=== PATIENT | female | born 1970 | race Caucasian/White ===

== ENCOUNTER 2020-06-29 08:51 | Outpatient (REF) | payer OTHER, SELFPAY | END 2020-06-29 08:52 | disposition home or self-care (01) | LOC: HO.LAB 08:51 | PROVIDERS: Visit Provider Internal Medicine | DX: Z20.828 Contact with and (suspected) exposure to other viral communicable diseases (principal) | CPT/HCPCS: C9803; U0003 ==

== ENCOUNTER 2020-07-20 05:17 | Emergency (ER) | payer OTHER, SELFPAY ==
[2020-07-20 05:24] VITALS: BP 170/93; PULSE 67; RESP 18; TEMP 36.6; O2SAT 98; BMI 27.3
--- NOTE | 2020-07-20 05:27 | ECG_ITS ---
Test Reason : ABD PAIN Blood Pressure : / mmHG Vent. Rate : 063 BPM Atrial Rate : 063 BPM P-R Int : 138 ms QRS Dur : 070 ms QT Int : 398 ms P-R-T Axes : -02 -05 023 degrees QTc Int : 407 ms Normal sinus rhythm Normal ECG No previous ECGs available Referred By: Jayme Snyder Electronically Signed By:CARLITO TRUJILLO MD
--- NOTE | 2020-07-20 05:29 | US_ITS ---
EXAMINATION: US ABDOMEN LIMITED CLINICAL INFORMATION: Right upper quadrant pain. COMPARISON: 02/26/2020 TECHNIQUE: Real-time imaging of the right upper quadrant abdominal viscera. FINDINGS: PANCREAS: Not well seen secondary to bowel gas LIVER: Normal. The liver is normal in size. The liver contour is normal. Parenchymal echogenicity is normal. No focal hepatic lesion. There is no intrahepatic biliary duct dilatation seen. GALLBLADDER: Redemonstration of a prominent polyp at the gallbladder fundus measuring 1.7 x 0.7 x 1.7 cm. The gallbladder is physiologically distended without evidence of stones, sludge, wall thickening or pericholecystic fluid. COMMON BILE DUCT: Normal in caliber measuring 0.3 cm in diameter. RIGHT KIDNEY: Normal. No hydronephrosis. No renal calculi or focal parenchymal lesions. The kidney measures 11.1 cm in maximum dimension. FREE FLUID: None. US/US abdomen limited IMPRESSION: No acute findings. Redemonstration of the probable gallbladder polyp at the fundus. There may be slight increase in size. Given the overall size, further evaluation is recommended, as previously suggested.
--- NOTE | 2020-07-20 05:30 | ED_ITS ---
HPI - Abdominal Pain General Chief Complaint: Abdominal Pain Stated Complaint: abd pain Time Seen by Provider: 07/20/20 05:20 Source: patient Mode of arrival: ambulatory History of Present Illness HPI narrative: 49-year-old female right upper quadrant abdominal pain since last night. Patient states sharp pain nonradiating. Nausea without vomiting mild diarrhea. No fevers no chills. Patient states was not hungry during dinner did not eat a full meal. Did have similar symptoms several months ago but did not follow-up denies dizziness denies weakness or recent illness MD elicited complaint: abdominal pain Quality: sharp Radiation: RUQ Exacerbating factors: movement Related Data Home Medications Medication Instructions Recorded Confirmed irbesartan 0.5 tab PO DAILY 07/20/20 07/20/20 Previous Rx's Medication Instructions Recorded famotidine [Pepcid] 40 mg PO DAILY #14 tab 07/20/20 ondansetron 4 mg PO Q8H PRN 5 Days #15 tab 07/20/20 tramadol 50 mg PO BID PRN #14 tab 07/20/20 Allergies Allergy/AdvReac Type Severity Reaction Status Date / Time latex [LATEX] Allergy Mild Hives Verified 07/20/20 05:55 Review of Systems Review of Systems Constitutional : No Weight loss, No Fever, No Chills, No Night Sweats, No Fatigue, No Malaise ENT/Mouth : No Hearing loss, No Ear Pain, No Nasal Congestion, No Sinus Pain, No Hoarseness, No sore throat, No Rhinorrhea, No Swallowing Difficulty Eyes: No Eye Pain, No Swelling, No Redness, No Foreign Body, No Discharge, No Vision Changes Cardiovascular : No Chest Pain, No SOB, No Dyspnea on Exertion, No Orthopnea, No Edema, No Palpitations Respiratory : No Cough, No Sputum, No Wheezing, No Smoke Exposure, No Dyspnea Gastrointestinal : Positive Nausea, No Vomiting, No Diarrhea, No Constipation, positive abdominal Pain, No Hematochezia, No Melena Genitourinary : no irregular bleeding, No Dysuria, No Urinary Frequency, No Hematuria, No Urinary Incontinence, No Urgency, No Flank Pain, No Urinary Flow Changes, No Hesitancy Musculoskeletal : No joint pain, No Myalgias, No Joint Swelling Skin : No Skin Lesions, No rash Neuro : No Weakness, No Numbness, No Paresthesias, No Loss of Consciousness, No Dizziness, No Headache Psych : No Anxiety/Panic, No Depression, No SI/HI/AH/VH, No Social Issues, Heme/Lymph: No Bruising, No Bleeding,No Lymphadenopathy Endocrine : No Polyuria, No Polydipsia, No Temperature Intolerance Physical Exam Vital Signs: Vital Signs: Last Vital Signs Temp 98 F 07/20/20 05:24 Pulse 67 07/20/20 05:24 Resp 18 07/20/20 05:24 BP 170/93 H 07/20/20 05:24 Pulse Ox 98 07/20/20 05:24 Body Mass Index 27.3 Appearance: Alert. Oriented X3. No acute distress. Eyes: Pupils equal, round and reactive to light. ENT: Pharynx normal. Neck: Normal inspection. Neck supple. No lymph nodes noted. No crepitus CVS: Normal heart rate and rhythm. Pulses normal. Normal S1 and S2 Respiratory: No respiratory distress. Breath sounds normal. No Wheezing. No rales Abdomen: Soft and positive right upper tender. No rigidity. No distention. good BS x4 Skin: Skin warm and dry. Normal skin color. Normal skin turgor. Extremities: No lower extremity edema. Neurovascular intact to all extremities. No Lacerations. No Rash Neuro: Oriented X 3. No motor deficit. No sensory deficit. Moving all extermities. No slurred speech. Course Course Course Narrative: I discussed with the patient regards to polyp seen on ultrasound and follow-up with primary care for definitive diagnosis MDM - Abdominal Pain MDM Narrative Medical decision making narrative: 49-year-old female with mid and right upper quadrant abdominal pain. Laboratory work with LFTs EKG troponin negative ultrasound without stones. Or signs of cholecystitis patient given IV Pepcid and IV morphine feeling much improved tolerating p.o. intake I discussed with the patient reasons to return to emergency department and follow-up with primary care for her blood pressure Differential Diagnosis Differential diagnosis: Likely abdominal pain (Cholecystitis pancreatitis acute coronary syndrome) Lab Data Attestation: I reviewed the patient's lab results. Result diagrams: 07/20/20 05:54 07/20/20 05:54 Labs: Lab Results 07/20/20 07/20/20 07/20/20 Range/Units 05:54 05:54 05:54 WBC 11.0 H (4.8-10.8) X10*3/uL RBC 4.56 (4.20-5.50) X10*6/uL Hgb 14.0 (12.0-16.0) g/dl Hct 41.5 (37-47) % MCV 91.0 (80-98) fL MCH 30.7 (27.0-33.0) pg MCHC 33.7 (31.0-35.0) g/dl RDW 12.3 (11.0-16.0) % Plt Count 213 (160-400) X10*3/uL MPV 10.0 (9.4-12.3) fL Immature Gran % (Auto) 0.4 (0.0-0.4) % Neut % (Auto) 70.2 (45-73) % Lymph % (Auto) 21.9 (20-40) % Leslie % (Auto) 5.8 (2-11) % Eos % (Auto) 1.2 (0-4) % Baso % (Auto) 0.5 (0-2) % Lymph # (Auto) 2.4 (1.2-4.9) X10*3/uL Leslie # (Auto) 0.6 (0.1-1.2) X10*3/uL Eos # (Auto) 0.1 (0.0-0.4) X10*3/uL Baso # (Auto) 0.1 (0.0-0.2) X10*3/uL Abs Immat Gran (auto) 0.04 H (0.00-0.03) X10*3/uL Absolute Neuts (auto) 7.7 (2.0-8.3) X10*3/uL Absolute Nucleated RBC 0.000 (0.0-0.012) X10*3/uL Nucleated RBC % (auto) 0.0 (0.0-0.2) /100WBC Sodium 140 (135-145) mmol/L Potassium 4.8 (3.3-5.1) mmol/l Chloride 103 (96-108) mmol/L Carbon Dioxide 25 (22-29) mmol/L Anion Gap 17 (12-20) BUN 20 H (9-16) mg/dL Creatinine 0.85 (0.5-1.4) mg/dL Estim Creat Clear Calc 62.4 Estimated GFR > 60 Random Glucose 124 H (60-115) mg/dL Calcium 9.3 (8.4-10.2) mg/dL Total Bilirubin 0.3 (0.0-1.0) mg/dL Direct Bilirubin < 0.2 (0.0-0.5) mg/dL AST 19 (5-31) U/L ALT 23 (0-31) U/L Alkaline Phosphatase 67 (39-117) U/L Troponin I High Sens < 3.5 (<3.5-17.0) ng/L Total Protein 7.4 (6.5-8.0) g/dL Albumin 4.4 (3.5-5.0) g/dL Lipase 38 (8-78) U/L ECG Data Attestation: I personally reviewed and interpreted this ECG as follows: Interpretation: Normal sinus rhythm. 63 beats per minute. Rightward axis. Normal ST-T segments Discharge Plan Discharge Clinical Impression: Biliary colic, Gastric anacidity Patient Disposition: Home, Self-Care Instructions: Gastritis (ED) Additional Instructions: Thank you for visiting the emergency department today. If your symptoms worsen or do not resolve completely please return to the emergency department immediately or call 911. If you have any questions please call your primary care physician Prescriptions: New tramadol 50 mg tablet 50 mg PO BID PRN (Reason: pain) Qty: 14 RF: 0 ondansetron 4 mg tablet,disintegrating 4 mg PO Q8H PRN (Reason: nausea and vomiting) 5 Days Qty: 15 RF: 0 famotidine [Pepcid] 40 mg tablet 40 mg PO DAILY Qty: 14 RF: 0 No Action irbesartan 150 mg tablet 0.5 tab PO DAILY RF: 0 Referrals: Zaira Lozano MD [Primary Care Provider] - 5 days [facility] Past Medical History Medical History Carpal tunnel syndrome Hypertension Retained urethral stent Seasonal allergies Surgical History Hx of breast reduction, elective S/P hemorrhoidectomy Social History Social History (Updated 07/20/20 @ 05:32 by Jayme Snyder DO) Household Members: Family Smoking Status: Never smoker Use of substances other than those prescribed or required for medical reasons: No Advance Directives: No Advance Directives Information Provided: No
[2020-07-20] MEDS: Famotidine/PF 20 MG/2 ML VIAL IVPUSH (05:56)
[2020-07-20] MEDS: Morphine Sulfate 4 MG/ML CARTRIDGE IVPUSH (05:56)
[2020-07-20] MEDS: 0.9 % Sodium Chloride 1,000 ML 999 ML IVCONT (05:57)
[2020-07-20 06:04] LABS: Basophils Absolute Auto 0.1 X10*3/uL (0.0-0.2); Basophils Percent Auto 0.5 % (0-2); Eosinophils Absolute Auto 0.1 X10*3/uL (0.0-0.4); Eosinophils Percent Auto 1.2 % (0-4); Hematocrit 41.5 % (37-47); Imm Gran Abs Auto 0.04 X10*3/uL (0.00-0.03); Imm Gran Pct Auto 0.4 % (0.0-0.4); Lymphocytes Absolute Auto 2.4 X10*3/uL (1.2-4.9); Lymphocytes Percent Auto 21.9 % (20-40); MANUAL DIFF FLAG NO; Mean Corpuscular HGB Conc 33.7 g/dl (31.0-35.0); Mean Corpuscular Hemoglobin 30.7 pg (27.0-33.0); Monocytes Absolute Auto 0.6 X10*3/uL (0.1-1.2); Monocytes Percent Auto 5.8 % (2-11); Neutrophils Absolute Auto 7.7 X10*3/uL (2.0-8.3); Neutrophils Percent Auto 70.2 % (45-73); Platelet Count 213 X10*3/uL (160-400); Red Blood Count 4.56 X10*6/uL (4.20-5.50); Red Cell Distribution Width 12.3 % (11.0-16.0)
[2020-07-20 06:30] LABS: Troponin-I High Sensitivity < 3.5 ng/L (<3.5-17.0)
[2020-07-20 06:31] LABS: Alanine Aminotransferase 23 U/L (0-31); Albumin Level 4.4 g/dL (3.5-5.0); Alkaline Phosphatase 67 U/L (39-117); Anion Gap 17 (12-20); Aspartate Amino Transferase 19 U/L (5-31); Bilirubin Direct < 0.2 mg/dL (0.0-0.5); Bilirubin Total 0.3 mg/dL (0.0-1.0); Blood Urea Nitrogen 20 mg/dL (9-16); Calcium 9.3 mg/dL (8.4-10.2); Carbon Dioxide 25 mmol/L (22-29); Chloride 103 mmol/L (96-108); Creatinine Clr Calc Pharmacy 62.4; Estimated Glomerular Filt Rate > 60; Glucose Random 124 mg/dL (60-115); Lipase 38 U/L (8-78); Potassium 4.8 mmol/l (3.3-5.1); Sodium 140 mmol/L (135-145); Total Protein 7.4 g/dL (6.5-8.0)
== END 2020-07-20 06:58 | disposition home or self-care (01) ==
PROVIDERS: Emergency Provider Emergency Medicine; PCP Internal Medicine
DX: K80.50 Calculus of bile duct without cholangitis or cholecystitis without obstruction (principal); K31.83 Achlorhydria; I10 Essential (primary) hypertension; R10.11 Right upper quadrant pain; Z79.899 Other long term (current) drug therapy
CPT/HCPCS: 36415; 76705; 80048; 80076; 83690; 84484; 85025; 93005; 96361; 96374; 96375; 99284; J2270

== ENCOUNTER 2020-09-26 13:37 | Outpatient (REF) | payer OTHER, SELFPAY ==
[2020-09-26 16:44] LABS: Hematocrit 42.7 % (37-47); Hemoglobin 14.6 g/dl (12.0-16.0); Mean Corpuscular HGB Conc 34.2 g/dl (31.0-35.0); Mean Corpuscular Hemoglobin 30.7 pg (27.0-33.0); Mean Corpuscular Volume 89.7 fL (80-98); Mean Platelet Volume 10.7 fL (9.4-12.3); Platelet Count 232 X10*3/uL (160-400); Red Blood Count 4.76 X10*6/uL (4.20-5.50); Red Cell Distribution Width 12.9 % (11.0-16.0); White Blood Count 8.1 X10*3/uL (4.8-10.8)
[2020-09-26 17:02] LABS: Alanine Aminotransferase 27 U/L (0-31); Albumin Level 4.6 g/dL (3.5-5.0); Alkaline Phosphatase 73 U/L (39-117); Anion Gap 17 (12-20); Aspartate Amino Transferase 22 U/L (5-31); Bilirubin Total 0.6 mg/dL (0.0-1.0); Blood Urea Nitrogen 14 mg/dL (9-16); Calcium 9.5 mg/dL (8.4-10.2); Carbon Dioxide 26 mmol/L (22-29); Chloride 102 mmol/L (96-108); Cholesterol 296 mg/dL; Estimated Glomerular Filt Rate > 60; Glucose Fasting 86 mg/dL (60-99); HDL Cholesterol 70 mg/dL; LDL Cholesterol Calculated 197 mg/dl; Potassium 4.3 mmol/L (3.3-5.1); Sodium 141 mmol/L (135-145); Total Protein 7.5 g/dL (6.5-8.0); Triglycerides 149 mg/dL
[2020-09-26 17:06] LABS: Glucose Urine UA NEG (NEG); Leukocyte Esterase Urine NEG (NEG); Nitrite Urine NEG (NEG); Urine Blood NEG (NEG); Urine Ketones NEG (NEG); Urine Protein NEG (NEG-TRACE)
[2020-09-26 17:12] LABS: Appearance Urine CLEAR; Color Urine YELLOW
[2020-09-26 17:26] LABS: TSH reflex Free T4 0.64 uIU/mL (0.32-4.0)
[2020-09-26 17:28] LABS: RBC Urine 0 /HPF (0); Squamous Epithelial Cell Urine TRACE /LPF; WBC Urine 0 /HPF (0-4)
[2020-09-27 08:40] LABS: SARS COV2 IgG Positive (Negative)
[2020-09-30 02:08] LABS: HPV mRNA E6/E7 Not Detected (Not Detected)
== END 2020-09-26 13:38 | disposition home or self-care (01) ==
LOC: HO.HMGCLDS 13:37
PROVIDERS: PCP Internal Medicine; Visit Provider Internal Medicine
DX: Z00.00 Encounter for general adult medical examination without abnormal findings (principal); Z01.84 Encounter for antibody response examination
CPT/HCPCS: 36415; 80053; 80061; 81001; 84443; 85027; 86769; 87624; 88142

== ENCOUNTER 2021-01-16 09:54 | Outpatient (REF) | payer OTHER, SELFPAY ==
--- NOTE | ~2021-01-16 | MM_ITS ---
EXAMINATION: MM SCREENING DIGITAL BREAST TOMOSYNTHESIS, BILATERAL CLINICAL INFORMATION: Screening. Asymptomatic. Remote history reduction mammoplasty approximately 17 years ago. No known family history breast cancer. The lifetime risk of breast cancer based on the Tyrer-Cuzick Model is 6%. COMPARISON: Outside mammography: 06/09/2018 ([facility]). TECHNIQUE: Digital breast tomosynthesis is performed in both the craniocaudal and mediolateral oblique views along with computer-aided detection (CAD). Synthesized 2D images are generated from the tomosynthesis. FINDINGS: There are scattered areas of fibroglandular density (ACR BI-RADS breast composition Category b). Parenchymal pattern is similar to prior outside exam 2018. There is some minor scarring and scattered benign round and dermal calcifications consistent with the prior reduction mammoplasty. There is stable nodule central posterior 12:00 right breast. There is no significant mass or architectural abnormality or developing density. The axilla are unremarkable. No significant changes. MM/MM tomosynthesis screening BI IMPRESSION: No mammographic evidence of malignancy. No significant changes from prior outside exam 2018. ASSESSMENT: BI-RADS 2: Benign RECOMMENDATION: Routine annual mammography screening. This patient's information was entered into a reminder system with a target due date for their next mammogram.
== END 2021-01-16 09:55 | disposition home or self-care (01) ==
LOC: HO.MAMMO 09:54
PROVIDERS: Visit Provider Internal Medicine
DX: Z12.31 Encounter for screening mammogram for malignant neoplasm of breast (principal)
CPT/HCPCS: 77063; 77067

== ENCOUNTER 2021-07-01 | Outpatient (REF) | payer OTHER, SELFPAY ==
[2021-07-02 13:13] LABS: Influenza A PCR NEGATIVE (Negative); Influenza B PCR NEGATIVE (Negative); Resp Syncy Virus RNA Qual PCR NEGATIVE (Negative); SARS COV2 PCR INHOUSE NEGATIVE (Negative)
== END 2021-07-01 00:01 | disposition home or self-care (01) ==
LOC: HO.LNP
PROVIDERS: Visit Provider Physician Assistant Medical
DX: J06.9 Acute upper respiratory infection, unspecified (principal); Z20.822 Contact with and (suspected) exposure to COVID-19
CPT/HCPCS: 0241U; 87071

== ENCOUNTER 2021-07-02 11:32 | Outpatient (REF) | payer OTHER, SELFPAY | END 2021-07-02 11:33 | disposition home or self-care (01) | LOC: HO.LNP 11:32 | PROVIDERS: Visit Provider Physician Assistant Medical | DX: Z13.89 Encounter for screening for other disorder (principal) ==

== ENCOUNTER 2021-11-20 13:30 | Outpatient (REF) | payer OTHER, SELFPAY ==
[2021-11-28 11:43] LABS: HPV mRNA E6/E7 Not Detected (Not Detected)
== END 2021-11-20 13:31 | disposition home or self-care (01) ==
LOC: HO.LAB 13:30
PROVIDERS: Visit Provider Internal Medicine
DX: Z01.419 Encounter for gynecological examination (general) (routine) without abnormal findings (principal)
CPT/HCPCS: 87624; 88142

== ENCOUNTER 2022-01-29 09:31 | Outpatient (REF) | payer OTHER, SELFPAY ==
--- NOTE | ~2022-01-29 | MM_ITS ---
EXAMINATION: MM SCREENING DIGITAL BREAST TOMOSYNTHESIS, BILATERAL CLINICAL INFORMATION: Screening. Asymptomatic. The lifetime risk of breast cancer based on the Tyrer-Cuzick Model is 6.1%. COMPARISON: Mammography: January 16, 2021 and June 09, 2018 TECHNIQUE: Digital breast tomosynthesis is performed in both the craniocaudal and mediolateral oblique views along with computer-aided detection (CAD). Synthesized 2D images are generated from the tomosynthesis. FINDINGS: There are scattered areas of fibroglandular density (ACR BI-RADS breast composition Category b). There are no significant masses, abnormal calcifications, or other abnormalities. MM/MM tomosynthesis screening BI IMPRESSION: There are no significant changes from prior study. ASSESSMENT: BI-RADS 1: Negative RECOMMENDATION: Routine annual mammography screening. This patient's information was entered into a reminder system with a target due date for their next mammogram.
== END 2022-01-29 09:32 | disposition home or self-care (01) ==
LOC: HO.MAMMO 09:31
PROVIDERS: Visit Provider Internal Medicine
DX: Z12.31 Encounter for screening mammogram for malignant neoplasm of breast (principal)
CPT/HCPCS: 77063; 77067

== ENCOUNTER 2022-05-21 11:12 | Outpatient (REF) | payer OTHER, SELFPAY ==
--- NOTE | ~2022-05-21 | XR_ITS ---
EXAMINATION: XR LUMBAR SPINE XR SACROILIAC JOINTS CLINICAL INFORMATION: Lower back pain. Sacrococcygeal disorders. COMPARISON: CT 02/26/2020 TECHNIQUE: 3 views of the lumbar spine. 3 views of the sacroiliac joints. FINDINGS: No fracture or subluxation. Vertebral body height and alignment maintained. There is lumbarization of S1. Disc spaces are maintained. Mild facet arthropathy at the lower lumbar spine. The sacrum appears intact. The sacroiliac joints are symmetric. No fusion. No abnormal sclerosis. The hips are aligned. Normal bowel gas pattern. XR/XR lumbar spine 2-3V IMPRESSION: No acute osseous abnormality. Lumbarization of S1. Normal appearance of the sacroiliac joints otherwise.
--- NOTE | ~2022-05-21 | XR_ITS ---
EXAMINATION: XR LUMBAR SPINE XR SACROILIAC JOINTS CLINICAL INFORMATION: Lower back pain. Sacrococcygeal disorders. COMPARISON: CT 02/26/2020 TECHNIQUE: 3 views of the lumbar spine. 3 views of the sacroiliac joints. FINDINGS: No fracture or subluxation. Vertebral body height and alignment maintained. There is lumbarization of S1. Disc spaces are maintained. Mild facet arthropathy at the lower lumbar spine. The sacrum appears intact. The sacroiliac joints are symmetric. No fusion. No abnormal sclerosis. The hips are aligned. Normal bowel gas pattern. XR/XR sacroiliac joint 1-2V IMPRESSION: No acute osseous abnormality. Lumbarization of S1. Normal appearance of the sacroiliac joints otherwise.
[2022-05-21 14:19] LABS: Estimated Average Glucose 103 mg/dL; Hemoglobin A1c % 5.2 %
[2022-05-21 14:46] LABS: Alanine Aminotransferase 25 U/L (0-31); Albumin Level 4.7 g/dL (3.5-5.0); Alkaline Phosphatase 77 U/L (39-117); Anion Gap 17 (12-20); Aspartate Amino Transferase 23 U/L (5-31); Bilirubin Total 0.9 mg/dL (0.0-1.0); Blood Urea Nitrogen 22 mg/dL (9-16); Carbon Dioxide 26 mmol/L (22-29); Chloride 103 mmol/L (96-108); Cholesterol 251 mg/dL; Estimated Glomerular Filt Rate > 60; Glucose Fasting 89 mg/dL (60-99); HDL Cholesterol 60 mg/dL; LDL Cholesterol Calculated 165 mg/dl; Potassium 4.8 mmol/L (3.3-5.1); Sodium 141 mmol/L (135-145); Total Protein 7.6 g/dL (6.5-8.0); Triglycerides 133 mg/dL
[2022-05-27 08:21] LABS: Transglutaminase IgA <1.0 U/mL
[2022-05-27 11:22] LABS: Endomysial IgA Antibody Negative (Negative)
== END 2022-05-21 11:13 | disposition home or self-care (01) ==
LOC: HO.HMGCLDS 11:12
PROVIDERS: PCP Internal Medicine; Visit Provider Internal Medicine
DX: E78.5 Hyperlipidemia, unspecified (principal); M54.50 Low back pain, unspecified; M53.3 Sacrococcygeal disorders, not elsewhere classified; I10 Essential (primary) hypertension; R19.7 Diarrhea, unspecified
CPT/HCPCS: 36415; 72100; 72200; 80053; 80061; 83036; 86231; 86364

== ENCOUNTER 2023-02-14 10:11 | Outpatient (REF) | payer SELFPAY ==
--- NOTE | ~2023-02-14 | MM_ITS ---
EXAMINATION: MM SCREENING DIGITAL BREAST TOMOSYNTHESIS, BILATERAL CLINICAL INFORMATION: Screening. Asymptomatic. Remote history reduction mammoplasty over 15 years ago. The lifetime risk of breast cancer based on the Tyrer-Cuzick Model is 6%. COMPARISON: Mammography: 01/29/2022, 01/16/2021, 06/09/2018 TECHNIQUE: Digital breast tomosynthesis is performed in both the craniocaudal and mediolateral oblique views along with computer-aided detection (CAD). Synthesized 2D images are generated from the tomosynthesis. FINDINGS: There are scattered areas of fibroglandular density (ACR BI-RADS breast composition Category b). Parenchymal pattern is similar to prior studies and there is no significant mass or architectural abnormality or developing density or abnormal calcifications. Again, there is minor scarring and scattered predominantly dermal and small round rim calcifications consistent with the prior reduction mammoplasty. The axilla are unremarkable. No significant changes. MM/MM tomosynthesis screening BI IMPRESSION: No mammographic evidence of malignancy. ASSESSMENT: BI-RADS 2: Benign RECOMMENDATION: Routine annual mammography screening. This patient's information was entered into a reminder system with a target due date for their next mammogram.
== END 2023-02-14 10:12 | disposition home or self-care (01) ==
LOC: HO.MAMMO 10:11
PROVIDERS: PCP Internal Medicine; Visit Provider Internal Medicine
DX: Z12.31 Encounter for screening mammogram for malignant neoplasm of breast (principal)
CPT/HCPCS: 77063; 77067

== ENCOUNTER 2023-06-18 10:56 | Outpatient (AMB) | payer OTHER, SELFPAY ==
[2023-06-18 11:19] VITALS: BP 102/66; PULSE 75; O2SAT 97; BMI 27.7
--- NOTE | 2023-06-18 11:19 | A.OFFPC_ITS ---
Vital Signs 06/18/23 11:19 Height 4 ft 11 in Weight 137 lb BMI 27.7 BP 102/66 Blood Pressure Location Lt brachial Position Sitting Pulse 75 Pulse Source Pulse Oximeter Pulse Oximetry (%) 97 Oxygen Delivery Method Room Air Intake Visit Reasons: vertigo and discuss medical issues Intake Note: Pt is here today for a sick visit. Pt c/o L ear pain and vertigo. Pt also states that she has been having pain in her heel. Pt states that she is finishing antibiotic for strep throat. Allergies latex [LATEX] Allergy (Mild, Verified 06/18/23 11:25) Hives rosuvastatin [From Crestor] Adverse Reaction (Verified 06/18/23 11:25) numbess in legs and feet, painful muscles Medication List - Last Reconciled 06/18/23 by Zaira Lozano MD albuterol sulfate 90 mcg/actuation (ProAir HFA) 2 puffs inhalation Q4-6H PRN flu vac [id number] 36mos up(PF) mL IM fluticasone propionate 50 mcg/actuation 1 spray intranasal DAILY irbesartan 75 mg (1/2 x 150 mg) PO DAILY Tobacco use date assessed: 01/28/23 Dental Screening Dental Screen Date: 06/18/23 Did you have a dental visit in the last 12 months?: Yes Did you have a dental problem in the last 6 months where you did not have access to dental care?: No Was dental information given to patient?: Patient has dentist HPI vertigo and discuss medical issues HPI Details Pt c/o recurrent vertigo 2 short episodes since beginning of Apr after Covid and L ear fullness and decreased hearing. Patient complains of chronic left heel pain for 1 month worse when starting to walk. She denies any injury [facility] Medical History Annual physical exam Anxiety Carpal tunnel syndrome Hyperlipidemia Hypertension Left otitis media Retained urethral stent Seasonal allergies Surgical History History of bladder surgery Hx of breast reduction, elective S/P hemorrhoidectomy Family History Father HTN (hypertension) Mother HTN (hypertension) Daughter No problems noted. Son No problems noted. Social History Household Members: Family Housing: House Patient Tobacco Use Status: Former Tobacco user e-Cigarette/Vaping Use: Never Used Current occupational status: employed Cognitive needs: No Hearing needs: No Vision needs: Yes Questionnaire Thrive Questionnaire Date Thrive assessed: 01/28/23 I am a: Patient What is your living situation today?: I have a steady place to live Within the past 12 months, did the food you bought not last and you didn't have the money to get more?: Never true Within the past 12 months, did you worry whether your food would run out before you got money to buy more?: Never true Please select the resources that you would like help with: None AUDIT C Alcohol Use Questionnaire (AUDIT-C) 1. How often do you have a drink containing alcohol?: Monthly or less 2. How many drinks containing alcohol do you have on a typical day when you are drinking?: 1 or 2 3. How often do you have six or more drinks on one occasion?: Never Total Score: 1 SANDRA-7 AMB Questionnaire SANDRA-7 Date SANDRA - 7 assessed: 01/28/23 Feeling nervous, anxious, or on edge: 0 = Not at all Not being able to stop or control worryin = Not at all Worrying too much about different things: 0 = Not at all Trouble relaxin = Not at all Being so restless that it is hard to sit still: 0 = Not at all Becoming easily annoyed or irritable: 0 = Not at all Feeling afraid as if something awful might happen: 0 = Not at all Total SANDRA-7 score (0-4 normal; 5-9 mild; 10-14 moderate; 15-21 severe): 0 Source: Developed by Drs. Grabiel Barrios, Casie Reyes, Yannick Cruz and colleagues, with an educational mahi from [employer]. Review of Systems Const All systems reviewed & are unremarkable except as noted in HPI and below Reports no additional complaints Eyes Reports no additional complaints ENT Reports no additional complaints Card Reports no additional complaints Resp Reports no additional complaints GI Reports no additional complaints Reports no additional complaints Physical exam (Primary Care) Vital Signs: Last Vital Signs Pulse 75 06/18/23 11:19 BP 102/66 06/18/23 11:19 Pulse Ox 97 06/18/23 11:19 Oxygen Delivery Method Room Air 06/18/23 11:19 BMI result Body Mass Index 27.7 Tobacco/Smoking Status: Tobacco use Status Tobacco use date assessed 01/28/23 06/18/23 11:20 Patient Tobacco Use Status Former Tobacco user 06/18/23 11:20 e-Cigarette/Vaping Use Never Used 06/18/23 11:20 Thrive Assessment: Date of Thrive Assessment Date Thrive assessed 01/28/23 06/18/23 11:20 Const General: no acute distress HENMT Ears: external ears normal, TM's normal bilaterally and Mistry (lateralized to L ear) Face and sinus: Yes normal facial exam Throat: Yes posterior oropharynx normal Eyes General: appearance normal, both eyes and all related structures Neck Neck: Yes supple Resp Effort & Inspection: normal respiratory effort Auscultation: clear to auscultation bilaterally Cardio Rhythm: regular rhythm Heart sounds: S1 normal heart sound present and S2 normal heart sound present Neuro Coordination: [id number] test normal Romberg Test: Negative Extrem Other: Reproducible tenderness at the left heel Assessment and Plan Assessment & Plan (1) Left ear hearing loss: Code(s): H91.92 - Unspecified hearing loss, left ear Plan: Refer for hearing test, 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 She was advised to use ear protection (2) Plantar fasciitis of left foot: Code(s): M72.2 - Plantar fascial fibromatosis Plan: Stretching exercises for plantar fasciitis given to the patient, meloxicam 15 mg daily for 10 days is prescribed. Orders: Referrals Speech and Hearing Referral H91.92 - Unspecified hearing loss, left ear Medications: New meloxicam 15 mg PO DAILY 10 tabs 0RF Coding Level of Care Code Est Pt Level 3 (36121) Diagnoses Left ear hearing loss H91.92 Plantar fasciitis of left foot M72.2
== END 2023-06-18 12:19 | disposition home or self-care (01) ==
PROVIDERS: PCP Internal Medicine; Visit Provider Internal Medicine
DX: H91.92 Unspecified hearing loss, left ear (principal); M72.2 Plantar fascial fibromatosis
CPT/HCPCS: 99213